=== PATIENT | male | born 1990 | race Hispanic/Latino ===

== ENCOUNTER 2016-05-16 10:16 | Emergency (ER) | payer MEDICAID, OTHER ==
[2016-05-16 10:23] VITALS: BP 121/83; PULSE 82; RESP 18; TEMP 98; O2SAT 100
--- NOTE | 2016-05-16 10:51 | C.PDOC ---
History Of Present Illness 25 y/o male presents to the ED with complains of rash x2 weeks, itchy and worse at night. Pt also complains of chronic left leg pain for years since injury. Pt has previously had MRI and X-rays done told was "out of alignment" and will resolve on its own with time. Pt recently started working at [employer] frequently and pain has since worsened. Pt denies any recent injury, fever, chills, SOB or any other complaints. Time Seen by Provider: 05/16/16 10:41 Chief Complaint (Nursing): Abnormal Skin Integrity History Per: Patient History/Exam Limitations: no limitations Onset/Duration Of Symptoms: Days Current Symptoms Are (Timing): Still Present Quality Of Symptoms: Itching Severity: Mild Recent travel outside of the [place]: No Past Medical History Reviewed: Historical Data, Nursing Documentation, Vital Signs Vital Signs: Last Vital Signs Temp 98 F 05/16/16 10:20 Pulse 82 05/16/16 10:20 Resp 18 05/16/16 10:20 BP 121/83 05/16/16 10:20 Pulse Ox 100 05/16/16 11:11 Family History: States: Unknown Family Hx - Social History Hx Alcohol Use: No Hx Substance Use: Yes - Immunization History Hx Tetanus Toxoid Vaccination: No Hx Influenza Vaccination: No Hx Pneumococcal Vaccination: No Review Of Systems Except As Marked, All Systems Reviewed And Found Negative. Constitutional: Negative for: Fever, Chills Respiratory: Negative for: Shortness of Breath Musculoskeletal: Positive for: Leg Pain (left leg) Skin: Positive for: Rash (itchy) Neurological: Negative for: Weakness, Numbness Physical Exam - Physical Exam Additional Physical Exam Comments: Constitutional: No acute distress. Head: Normocephalic. Atraumatic. ENT: Moist mucous membranes. Neck: Supple. Cardiovascular: Regular rate. Radial pulses 2+ bilaterally. Chest: No tenderness. Respiratory: Clear to auscultation bilaterally. Musculoskeletal: Full ROM leg, normal gait. No tenderness or swelling of extremities. Skin: papules and pustules to bilateral hands, mostly flexor surfaces between digits Neurologic: Alert, no focal deficit. ED Course And Treatment O2 Sat by Pulse Oximetry: 100 (on room air) Pulse Ox Interpretation: Normal Medical Decision Making Medical Decision Making: Given discharge instructions, told to follow up with orthopedics for chronic leg pain Disposition - Disposition Referrals: [facility] [Outside] Disposition: HOME/ ROUTINE Disposition Time: 10:49 Condition: GOOD Prescriptions: Permethrin 5% [Permethrin] 1 appl TOP ONCE #1 tube Instructions: Scabies (ED) Forms: Work Excuse - Clinical Impression Clinical Impression: Scabies - Scribe Statement The provider has reviewed the documentation as recorded by the [employer] Provider Attestation: All medical record entries made by the [employer] were at my direction and personally dictated by me. I have reviewed the chart and agree that the record accurately reflects my personal performance of the history, physical exam, medical decision making, and the department course for this patient. I have also personally directed, reviewed, and agree with the discharge instructions and disposition.
== END 2016-05-16 11:07 | disposition home or self-care (01) ==
LOC: C.ER 10:16
DX: B86 Scabies (principal)